=== PATIENT | female | born 1945 | race Caucasian/White ===

== ENCOUNTER → 2016-03-09 | Outpatient (CLI) | payer OTHER ==
--- NOTE | 2016-03-09 13:27 | CPEEG ---
[f rep st] ELECTROENCEPHALOGRAM DATE OF STUDY: 03/09/2016 INTERPRETATION: Normal EEG during wakefulness and drowsiness. There were no potentially epileptogenic abnormalities present recording. REPORT: This EEG contains 10 Hz alpha to the posterior head regions. There was no abnormal activation at rest, during photic stimulation or hyperventilation. The patient became drowsy during the study. During drowsiness, there were slow bi-temporal transients. This is a normal finding for state of consciousness and age. There was no abnormal activation during drowsiness or during times of arousal. /[id number]/MODL MTDD
== END ==
LOC: FCPNEURO 09:11
PROVIDERS: ATTEND Psychiatry & Neurology Neurology
DX: R41.89 Other symptoms and signs involving cognitive functions and awareness (principal); R51 Headache

== ENCOUNTER → 2016-03-20 | Outpatient (CLI) | payer OTHER, MEDICAID ==
[~2016-03-20] MED LIST: GADOBUTROL 10 ML VIAL IVP ONE
[2016-03-20 10:47] LABS: CREATININE 0.7 mg/dL (0.6-1.0); GLOMERULAR FILTRATION RATE > 60
--- NOTE | 2016-03-20 17:23 | MR ---
MRI of the Brain (Without and With Contrast) Clinical Indication: Persistent headache and altered mental status in a 70-year-old female; evaluate for structural lesion.. Technique: T1-weighted images were acquired axially and sagittally from the foramen magnum to the ve rtex. Axial T1-weighted, susceptibility-weighted, fast inversion-recovery, fast T2-weighted, and dif fusion-weighted axial images were obtained without contrast. Following uneventful intravenous adminis tration of 6 mL Gadavist contrast, axial and coronal T1-weighted images were performed. Findings: No masses, areas of hemorrhage or extraaxial fluid collections are identified. Ventricles and midline structures are normal in position and appearance. There are a few scattered areas of whit e matter T2 hyperintensity bilaterally supratentorially. These may reflect minimal small vessel ische adalgisa disease. Diffusion-weighted images are negative for acute ischemia. Cerebellar tonsils are in no rmal position. Vascular structures are normal with normal flow-voids seen in the superior sagittal si nus, basilar artery, and bilateral internal carotid arteries. Postcontrast images demonstrate no enha ncing lesions or abnormal leptomeningeal enhancement. Paranasal sinuses and mastoid air cells are renetta ar. Impression: The examination is essentially normal for age with minimal white matter T2 hyperintensit y, which may reflect small vessel disease. No structural lesion is identified.
== END ==
LOC: FIMAGING 09:56
PROVIDERS: ATTEND Psychiatry & Neurology Neurology
DX: R41.89 Other symptoms and signs involving cognitive functions and awareness (principal); R51 Headache; R25.1 Tremor, unspecified
CPT/HCPCS: 70553; A9585

== ENCOUNTER → 2016-04-20 | Outpatient (CLI) | payer OTHER, MEDICAID | LOC: FIMAGING 12:55 | DX: Z12.31 Encounter for screening mammogram for malignant neoplasm of breast (principal); Z80.3 Family history of malignant neoplasm of breast | CPT/HCPCS: G0202 ==

== ENCOUNTER 2016-09-13 10:09 | Observation (INO) | payer OTHER, MEDICAID ==
--- NOTE | 2016-09-13 10:12 | EDPHY ---
H & P Time Seen by Provider: 09/13/16 10:12 HPI/ROS: CHIEF COMPLAINT: Arms tingling HISTORY OF PRESENT ILLNESS: Patient is been evaluated by Dr. Hernandez at [facility], and Dr. Clark including a negative brain MRI except for some T2 hyperintensity on 03/20/2016 and a negative EEG on 03/09/2016. She has had these episodes twice a month for the last 3 years. This morning she was doing normal chores around the house, when she had sudden onset of right hand shaking like her previous, bilateral upper arm numbness. This then resolved after she was able to walk up stairs and called 911 but she developed right-sided facial numbness and right leg weakness. She says this is now almost gone but still a little bit persistent. No difficulty with speech or balance. No visual symptoms. No seizure. No recent injury or trauma. REVIEW OF SYSTEMS: Eye: no change in vision ENT: no sore throat Cardiac: no chest pain or syncope Pulmonary: no cough or SOB Abdomen: no vomiting, diarrhea, abdominal pain Musculoskeletal: no back pain or neck pain, no recent chiropractic. Skin: no rash Neuro: Mild headache now. Constitutional: no fever : no urinary symptoms A comprehensive 10 point review of systems is otherwise negative aside from elements mentioned in the history of present illness. PAST MEDICAL HISTORY: Vertigo and hypertension. Degenerative disc disease. Social history: Patient lives with an 85-year-old roommate and her cat Radha carpio. General Appearance: Alert and conversant, cooperative. Eyes: No scleral icterus. Extraocular motion intact. ENT, Mouth: Normal mucous membranes. No tongue laceration or abrasion. Respiratory: Normal respiratory effort, breath sounds equal, lungs are clear to auscultation. Cardiovascular: Regular rate and rhythm. Gastrointestinal: Abdomen is soft and non tender. Neurological: Alert and oriented x3. Ambulatory to the bathroom without assistance or ataxia. Skin: Warm and dry, no rashes. Musculoskeletal: No peripheral edema and no joint swelling. Psychiatric: Not agitated. Moderately anxious. The patient is alert. States age is 71 and month is September. Will follow commands to open and close eyes and advertising director hand. There is not a gaze paresis. Visual pretty are intact. Face is symmetric. Right arm shows no drift. Right leg shows no drift. Left arm shows no drift. Left leg shows no drift. Limb ataxia is absent. Sensation is intact. There is no aphasia and no dysarthria. There is no evidence of neglect. Emergency Department course/MDM: 1030: Discussed with Dr. Hernandez the patient's neurologist; she requests that because of the patient's right-sided facial numbness and facial weakness that she be admit for TIA workup. Patient does not have objective neurologic deficit on my evaluation, and so although symptoms present for less than 3 hours does not in my clinical impression meet criteria for stroke alert. Constitutional: Initial Vital Signs Temperature (C) 36.8 C 09/13/16 10:21 Heart Rate 94 09/13/16 10:21 Respiratory Rate 16 09/13/16 10:21 Blood Pressure 166/110 H 09/13/16 10:21 O2 Sat (%) 97 09/13/16 10:21 O2 Delivery Mode Room Air Allergies/Adverse Reactions: bacitracin [From Neosporin] Allergy (Verified 07/20/11 20:05) bacitracin zinc [From Neosporin] Allergy (Verified 07/20/11 20:05) benzalkonium chloride [From Neosporin] Allergy (Verified 07/20/11 20:05) gramicidin D [From Neosporin] Allergy (Verified 07/20/11 20:05) hydrocortisone [From Neosporin] Allergy (Verified 07/20/11 20:05) neomycin sulfate [From Neosporin] Allergy (Verified 07/20/11 20:05) polymyxin B [From Neosporin] Allergy (Verified 07/20/11 20:05) polymyxin B sulfate [From Neosporin] Allergy (Verified 07/20/11 20:05) Home Medications: Medication Instructions Recorded Beclomethasone Qvar 80 [Qvar 80 2 puffs IH DAILY PRN 09/13/16 (*)] Herbals/Supplements -Info Only 1 ea PO DAILY 09/13/16 Losartan Potassium [Cozaar 25 mg 12.5 mg PO HS 09/13/16 (*)] Multivitamins [Multivitamin (*)] 1 each PO DAILY 09/13/16 Triamcinolone Acetonide [Nasacort] 1 spray NASAL PRN PRN 09/13/16 Medical Decision Making - Diagnostics EKG Interpretation: 12-lead EKG interpreted by me; official reading is in trace master. My interpretation is sinus rhythm rate 79 normal intervals. Imaging Results: Imaging Impressions Head CT 09/13/16 10:29 Impression: Nothing acute identified. Final concordant results called to Dr. Schultz at 10:53 AM General information for patients regarding this examination can be found at [email or web address]. If you have questions or comments about this report, please contact me at (hospital) or [phone] (cell). Noncontrast head CT negative discussed and reviewed with Elda at 10:52 a.m. Imaging: I viewed and interpreted images myself Differential Diagnosis: Differential considered including but not limited to ischemic stroke, intracranial mass or bleed, transverse myelitis or other spinal cord problem, metabolic, seizure, panic or anxiety. - Data Points Laboratory Results: Laboratory Results 09/13/16 10:00 09/13/16 10:00 09/13/16 09/13/16 09/13/16 10:00 10:00 10:00 WBC 6.25 10^3/uL 10^3/uL (3.80-9.50) RBC 4.66 10^6/uL 10^6/uL (4.18-5.33) Hgb 14.6 g/dL g/dL (12.6-16.3) Hct 44.1 % % (38.0-47.0) MCV 94.6 fL fL (81.5-99.8) MCH 31.3 pg pg (27.9-34.1) MCHC 33.1 g/dL g/dL (32.4-36.7) RDW 13.1 % % (11.5-15.2) Plt Count 255 10^3/uL 10^3/uL (150-400) MPV 9.8 fL fL (8.7-11.7) Neut % (Auto) 54.1 % % (39.3-74.2) Lymph % (Auto) 33.0 % % (15.0-45.0) [place] % (Auto) 7.5 % % (4.5-13.0) Eos % (Auto) 3.8 % % (0.6-7.6) Baso % (Auto) 1.3 % % (0.3-1.7) Nucleat RBC Rel Count 0.0 % % (0.0-0.2) Absolute Neuts (auto) 3.38 10^3/uL 10^3/uL (1.70-6.50) Absolute Lymphs (auto) 2.06 10^3/uL 10^3/uL (1.00-3.00) Absolute Monos (auto) 0.47 10^3/uL 10^3/uL (0.30-0.80) Absolute Eos (auto) 0.24 10^3/uL 10^3/uL (0.03-0.40) Absolute Basos (auto) 0.08 10^3/uL 10^3/uL (0.02-0.10) Absolute Nucleated RBC 0.00 10^3/uL 10^3/uL (0-0.01) Immature Gran % 0.3 % % (0.0-1.1) Immature Gran # 0.02 10^3/uL 10^3/uL (0.00-0.10) Sodium 141 mEq/L mEq/L (134-144) Potassium 4.1 mEq/L mEq/L (3.5-5.2) Chloride 106 mEq/L mEq/L (97-110) Carbon Dioxide 22 mEq/l mEq/l (22-31) Anion Gap 13 mEq/L mEq/L (8-16) BUN 21 mg/dL mg/dL (7-23) Creatinine 0.8 mg/dL mg/dL (0.6-1.0) Estimated GFR > 60 Glucose 124 mg/dL H mg/dL (70-100) Calcium 10.0 mg/dL mg/dL (8.5-10.4) Troponin I < 0.012 ng/mL ng/mL (0-0.034) TSH 2.490 uIU/mL uIU/mL (0.465-4.680) Departure - Departure Disposition: [facility] Inpatient Acute Clinical Impression: Facial paresthesia Condition: Good
[2016-09-13 10:42] LABS: % IMMATURE GRANULYOCYTES 0.3 % (0.0-1.1); ABSOLUTE IMMATURE GRANULOCYTES 0.02 10^3/uL (0.00-0.10); ADD DIFF? NO; ADD MORPH? NO; ADD SCAN? NO; ATYPICAL LYMPHOCYTE FLAG 20 (0-99); FRAGMENT RBC FLAG 0 (0-99); HEMATOCRIT 44.1 % (38.0-47.0); HEMOGLOBIN 14.6 g/dL (12.6-16.3); LEFT SHIFT FLG 0 (0-99); LIPEMIA HEMOLYSIS FLAG 80 (0-99); MEAN CELL HEMOGLOBIN 31.3 pg (27.9-34.1); MEAN CELL HEMOGLOBIN CONCENTR. 33.1 g/dL (32.4-36.7); MEAN CELL VOLUME 94.6 fL (81.5-99.8); MEAN PLATELET VOLUME 9.8 fL (8.7-11.7); PLATELET CLUMPS FLAG 10 (0-99); PLATELET COUNT 255 10^3/uL (150-400); RED BLOOD CELL COUNT 4.66 10^6/uL (4.18-5.33); RED CELL DISTRIBUTION WIDTH 13.1 % (11.5-15.2)
[2016-09-13 10:47] LABS: ANION GAP 13 mEq/L (8-16); CARBON DIOXIDE 22 mEq/l (22-31); CHLORIDE 106 mEq/L (97-110); CREATININE 0.8 mg/dL (0.6-1.0); GLOMERULAR FILTRATION RATE > 60; GLUCOSE 124 mg/dL (70-100); POTASSIUM 4.1 mEq/L (3.5-5.2); SODIUM 141 mEq/L (134-144)
[2016-09-13 10:58] LABS: TROPONIN I < 0.012 ng/mL (0-0.034)
--- NOTE | 2016-09-13 10:58 | CPEKG ---
Heart Rate: 79 RR Interval: 759 P-R Interval: 200 QRSD Interval: 82 QT Interval: 356 QTC Interval: 409 P [place]: 63 QRS [place]: 0 T Wave [place]: 27 EKG Severity - NORMAL ECG - EKG Impression: SINUS RHYTHM Electronically Signed By: Misael Schultz 13-Sep-2016 10:59:56
[2016-09-13] MEDS ORDERED: ONDANSETRON 4 MG/2 ML VIAL IVP PRN (12:40)
[2016-09-13] MEDS ORDERED: PROMETHAZINE HCL 25 MG/ML INJ IVP PRN (12:40)
[2016-09-13] MEDS ORDERED: oxyCODONE IR 5 MG TAB PO PRN (12:40)
[2016-09-13] MEDS ORDERED: ACETAMINOPHEN 325 MG TAB PO PRN (12:40)
[2016-09-13] MEDS ORDERED: ONDANSETRON DISINTEGRATING 4 MG TAB PO PRN (12:40)
[2016-09-13] MEDS ORDERED: Triamcinolone Acetonide [Nasacort] 1 SPRAY NASAL PRN (12:43)
[2016-09-13] MEDS ORDERED: BECLOMETHASONE QVAR 80 MDI IH PRN (12:43)
[2016-09-13] MEDS ORDERED: NS 1,000 ML IV SCH (12:45)
--- NOTE | 2016-09-13 14:38 | PDGENHP ---
History and Physical - Chief Complaint paresthesias/tremors - History of Present Illness 71 yo F with PMH of HTN and weekly "episodes" of "fuzziness" of thinking associated with right arm and hand paresthesias and tremors as well as neck tightness and leg spasms. She notes that these episodes occur typically at least once per week for the last year and a half, and each episode lasts around 10-12 minutes. When they occur she is unable to do much of anything other than sit and wait for it to pass. Lying down makes it worse and when she tries to work or do normal activities she is unable to. This was occurring again today but was different in that her right fifth finger was spontaneously abducting and both her arms were involved with paresthesias and shaking. This led her to call 911. On arrival in the ER she also noted some tingling on her right face. All these issues resolved spontaneously and she is currently feeling well. She has been evaluated for these issues in the past and underwent EEG, brain MRI, holter monitoring and stress testing in the past. All these tests were normal, including Holter monitoring that did catch an episode. History Information - Allergies/Home Medication List Allergies/Adverse Reactions: bacitracin [From Neosporin] Allergy (Verified 07/20/11 20:05) bacitracin zinc [From Neosporin] Allergy (Verified 07/20/11 20:05) benzalkonium chloride [From Neosporin] Allergy (Verified 07/20/11 20:05) gramicidin D [From Neosporin] Allergy (Verified 07/20/11 20:05) hydrocortisone [From Neosporin] Allergy (Verified 07/20/11 20:05) neomycin sulfate [From Neosporin] Allergy (Verified 07/20/11 20:05) polymyxin B [From Neosporin] Allergy (Verified 07/20/11 20:05) polymyxin B sulfate [From Neosporin] Allergy (Verified 07/20/11 20:05) Home Medications: Beclomethasone Qvar 80 [Qvar 80 (*)] 2 puffs IH DAILY PRN 09/13/16 [Last Taken Unknown] Herbals/Supplements -Info Only 1 ea PO DAILY 09/13/16 [Last Taken 09/12/16] Losartan Potassium [Cozaar 25 mg (*)] 12.5 mg PO HS 09/13/16 [Last Taken ] Multivitamins [Multivitamin (*)] 1 each PO DAILY 09/13/16 [Last Taken 09/12/16] Triamcinolone Acetonide [Nasacort] 1 spray NASAL PRN PRN 09/13/16 [Last Taken ] I have personally reviewed and updated: family history, medical history, social history, surgical history - Past Medical History arthritis, hypertension - Surgical History Reports: no pertinent surgical hx - Family History Positive for: diabetes type II (mother and cousin) Additional family history: sister with osteoporosis - Social History Smoking Status: Never smoked Alcohol Use: None Drug Use: None Additional social history: Has an 85 year old roommate that she assists with various things. Has a cat. Teaches figure skating. Review of Systems ROS: 10pt was reviewed & negative except for what was stated in HPI & below Physical Exam Temp Pulse Resp BP Pulse Ox 36.6 C 87 20 154/95 H 97 09/13/16 12:32 09/13/16 12:32 09/13/16 12:32 09/13/16 12:32 09/13/16 12:32 Constitutional: no apparent distress, appears nourished Eyes: PERRL, anicteric sclera Ears, Nose, Mouth, Throat: moist mucous membranes, hearing normal Cardiovascular: regular rate and rhythym, no murmur, rub, or gallop, No edema Respiratory: no respiratory distress, no rales or rhonchi, clear to auscultation Gastrointestinal: normoactive bowel sounds, soft, non-tender abdomen Genitourinary: no bladder tenderness Skin: warm, normal color Musculoskeletal: full muscle strength, no muscle tenderness, No asymmetric calves Neurologic: AAOx3 Psychiatric: interacting appropriately, not anxious, not encephalopathic Lab Data & Imaging Review 09/13/16 10:00 09/13/16 10:00 WBC 6.25 10^3/uL (3.80-9.50) 09/13/16 10:00 RBC 4.66 10^6/uL (4.18-5.33) 09/13/16 10:00 Hgb 14.6 g/dL (12.6-16.3) 09/13/16 10:00 Hct 44.1 % (38.0-47.0) 09/13/16 10:00 MCV 94.6 fL (81.5-99.8) 09/13/16 10:00 MCH 31.3 pg (27.9-34.1) 09/13/16 10:00 MCHC 33.1 g/dL (32.4-36.7) 09/13/16 10:00 RDW 13.1 % (11.5-15.2) 09/13/16 10:00 Plt Count 255 10^3/uL (150-400) 09/13/16 10:00 MPV 9.8 fL (8.7-11.7) 09/13/16 10:00 Neut % (Auto) 54.1 % (39.3-74.2) 09/13/16 10:00 Lymph % (Auto) 33.0 % (15.0-45.0) 09/13/16 10:00 [place] % (Auto) 7.5 % (4.5-13.0) 09/13/16 10:00 Eos % (Auto) 3.8 % (0.6-7.6) 09/13/16 10:00 Baso % (Auto) 1.3 % (0.3-1.7) 09/13/16 10:00 Nucleat RBC Rel Count 0.0 % (0.0-0.2) 09/13/16 10:00 Absolute Neuts (auto) 3.38 10^3/uL (1.70-6.50) 09/13/16 10:00 Absolute Lymphs (auto) 2.06 10^3/uL (1.00-3.00) 09/13/16 10:00 Absolute Monos (auto) 0.47 10^3/uL (0.30-0.80) 09/13/16 10:00 Absolute Eos (auto) 0.24 10^3/uL (0.03-0.40) 09/13/16 10:00 Absolute Basos (auto) 0.08 10^3/uL (0.02-0.10) 09/13/16 10:00 Absolute Nucleated RBC 0.00 10^3/uL (0-0.01) 09/13/16 10:00 Immature Gran % 0.3 % (0.0-1.1) 09/13/16 10:00 Immature Gran # 0.02 10^3/uL (0.00-0.10) 09/13/16 10:00 Sodium 141 mEq/L (134-144) 09/13/16 10:00 Potassium 4.1 mEq/L (3.5-5.2) 09/13/16 10:00 Chloride 106 mEq/L (97-110) 09/13/16 10:00 Carbon Dioxide 22 mEq/l (22-31) 09/13/16 10:00 Anion Gap 13 mEq/L (8-16) 09/13/16 10:00 BUN 21 mg/dL (7-23) 09/13/16 10:00 Creatinine 0.8 mg/dL (0.6-1.0) 09/13/16 10:00 Estimated GFR > 60 09/13/16 10:00 Glucose 124 mg/dL (70-100) H 09/13/16 10:00 Calcium 10.0 mg/dL (8.5-10.4) 09/13/16 10:00 Troponin I < 0.012 ng/mL (0-0.034) 09/13/16 10:00 Visualized and Interpreted imaging results: Yes Interpretation: Head CT: no acute findings Visualized and Interpreted EKG results: Yes EKG Interpretation: Positive for: normal sinsus rhythm Assessment & Plan Assessment: Facial paresthesia (Acute) 71 yo F with PMH of HTN presenting with brief episode of bilateral upper extremity paresthesias/tremors in the setting of nearly 2 years of intermittent similar issues. # paresthesias/tremors: having near weekly episodes of same with prior w/u thus far unremarkable. At this point etiology unclear but query atypical migraine versus less likely TIA versus cervical radiculopathy versus less likely partial seizure. Has had recent EEG not c/w seizure as well as recent brain MRI and head CT both of which were negative for any anatomic abnormality to explain her sxs. Will check echo and carotid US for complete TIA eval, continue to monitor on tele. Will also obtain CT cervical spine given that this could represent cervical radiculopathy. Neuro consult in am. # anxiety: patient does appear fairly anxious and expresses issues around feeling overwhelmed with how much she needs to get done in a given day so certainly some underlying anxiety could be contributing and query above being related to panic attack/hyperventilation however the typical unilateral nature of her sxs would argue against that. Will recommend op f/u. Check TSH # HTN: continue losartan # dispo: observation status, will likely need < 48 hours stay for eval/mgmt of above Patient new to my care. Old records reviewed and summarized as above. Care plan reviewed with ER doctor including plans for neuro consult.
[2016-09-13 14:40] LABS: COLOR YELLOW; LEUKOCYTE ESTERASE,URINE NEGATIVE (NEGATIVE); NITRITE,URINE NEGATIVE (NEGATIVE)
[2016-09-13 20:01] VITALS: BP 149/86; PULSE 93; RESP 18; TEMP 98.4; O2SAT 96
[2016-09-13] MEDS ORDERED: LOSARTAN POTASSIUM 25 MG TAB PO SCH (21:00)
--- NOTE | 2016-09-13 21:42 | GCON ---
[f rep st] CONSULTATION DATE OF CONSULTATION: 09/13/2016 REFERRING PHYSICIAN: Salomón Gama MD HISTORY OF PRESENT ILLNESS: The patient is a 71-year-old woman who I am asked to see in neurologic consultation regarding recurrent spells. She has a chief complaint of episodes of leg weakness but multiple other symptoms as well. Symptoms began approximately a year and a half ago and have been r ather stereotyped since then. Classically she says that she will start having an abnormal sensation in her low back or neck and then perceive that her legs are not working very well and feels weak in her legs and she usually needs to sit down and wait for it to gradually get better. Very often the re is a tremulousness in the right hand. Sometimes she has associated paresthesias and she tries to take deep breaths during the episodes and have it eventually pass after 10-15 minutes. The episode s are occurring approximately every 2 weeks and she has not found clear-cut precipitating or exacerb ating factors for this. She estimates maybe 5 episodes have occurred during the night when she is l jaymie in bed in either drowsy or asleep even. The duration has never been any longer than this typic ally. Today she had a very similar episode, and the only reason she came to the hospital was renzo e she said she was having tingling in both of the upper extremities. Sometimes she feels as if she is having some muscle spasms. She also said there was a transient, light perception of tingling in the right face. She had elevated blood pressure with the Emergency Room pressure around 180 systoli c. When she came to the floor her pressure was 166/110 and she has had pressure around 180/108 and now it is 156/88. She does have known hypertension. She does not typically have severe headache, b ut often does describe some headache in the posterior head region on a variable basis, but does not have a known history of migraine. She had evaluation with Cardiology, Dr. Meneses, and had extensiv e evaluation including Holter monitor, and had 1 of her events during the recording and nothing was seen to suggest a cardiac source. She had Rheumatology evaluation with Dr. Syed and apparently was told that she had some severe degenerative cervical spine disease but nothing else more specific, an d that was thought to perhaps explain headache. When she saw Dr. Hernandez for Neurology, I do not have her notes available, she initiated a workup with EEG that was unremarkable and recommended a 48 hour EEG, but the patient did want to do that. She apparently has seen Dr. Hernandez on 2 occasions. On this hospitalization, she had a negative head CT and she has had carotid ultrasound showing no si gnificant abnormalities. She has had a CT scan of the cervical spine showing degenerative spine dis ease, but nothing else more specific. REVIEW OF SYSTEMS: Otherwise 10 point review of systems has been completed and unremarkable except for that noted above. She does sometimes have some palpitations during these events. In fact, she often feels a strong pounding heartbeat during the events, but denies feeling sweaty. She is anxiou s during the events. PAST MEDICAL HISTORY: As outlined above. Also notable for ulcer disease and diagnosed with Vilma cam i in the past which treated her successfully. She has had hypertension for which she is on treatmen t. Some osteoarthritis. SOCIAL HISTORY: No smoking, alcohol or drug use. She is fairly physically active, and teaches ice skating. FAMILY HISTORY: Diabetes. She lives with an older woman and helps take care of her and that keeps her very busy. HOME MEDICATIONS: Nasacort, QVAR, Cozaar. She is not regularly on aspirin. ALLERGIES: Bacitracin, zinc chloride, hydrocortisone, polymyxin, neomycin. PHYSICAL EXAMINATION: VITAL SIGNS: Blood pressure 156/88, temperature 36.7, pulse of 83, respirati ons 17. GENERAL: She is a well-developed woman lying in the bed in no acute distress. EYES: Pamela r. NECK: Supple with no bruits or masses. No supraclavicular bruits. CARDIAC: Regular rate and rhythm. No murmur. EXTREMITIES: No cyanosis or edema. No skin rash. NEUROLOGIC: She is awake, alert and attentive, with clear fluent speech. She is oriented to person, place, time, and general situation. She has good recent and remote memory, and normal concentration, attention and general f und of knowledge. Pupils 3 mm and reactive. Extraocular movements are intact. Normal facial sensa tion and strength. Motor exam: Normal muscle bulk and tone. 5/5 strength with no abnormal movement s. Sensation is intact for temperature and light touch. No ataxia in the upper extremities. Refle xes are 2+ and symmetric. DIAGNOSTIC STUDIES: As outlined above. IMPRESSION: Ms. Caldwell has a stereotyped smell characterized by paresthesias, pain, dysfunction in the legs, some tremulousness, and today a little bit of paresthesias in bilateral upper extremities and some muscle spasms as well as some very mild right facial numbness today. The episodes have occ urred probably 30 times or so over the last year and a half and have never really changed. She has had rather thorough evaluations and no cardiac source has been found and no definite neurologic sour ce. The differential diagnosis does include panic attacks as well as transient ischemic attack or c ardiac arrhythmias, but I do not think it is a primary cardiac issue. I do not think she is probabl y having a transient ischemic attack. She does not have vascular stenoses that we have been able to identify. EEG was negative. Seizure seems unlikely based on this description. It is hard to be c ertain that this is in fact a panic attack, but the way she is describing some of the symptoms makes me think she is probably having some hyperventilation triggering the paresthesias and some of the s pasms, and this bilateral lower extremity dysfunction does not seem likely due to brainstem ischemia , which is about the only way I could explain this if we were really dealing with clots or thrombosi s. In any case, I think that she could safely be followed up as an outpatient. She has completed h er workup here. She asked if she can go home. I think that would be safe. She has an NIH stroke s claude of 0. I did recommend she add a baby aspirin daily to her regimen just to be cautious but noth ing else more specific at this point. I would not add a statin because I think the diagnosis of TIA is unlikely. The even more obscure considerations of pheochromocytoma or carcinoid syndrome could be worked up by her upkeep worker if the episodes become more associated with prominent hypertension or flushing, but that seems low likelihood as well. I told her she might try a trial of an anti anxiet y medication but she was very reluctant to do that. The total unit time was 75 minutes, greater than 50% of the time counseling and coordination of care . /[id number]/MODL
[2016-09-14] MEDS ORDERED: ENOXAPARIN 40 MG/0.4 ML SYR SC SCH (09:00)
[2016-09-14] MEDS ORDERED: MULTIVITAMINS 1 EACH TAB PO SCH (09:00)
--- NOTE | 2016-09-14 10:14 | PDDCSUM ---
Discharge Summary Discharge Summary: Dates of service 09/13/16 Discharge diagnosis: # paresthesias # anxiety # thyroid enlargement/nodules Consultations: neurology Procedures performed: head CT, c spine CT, carotid US Hospital course by problem: # paresthesias: patient with stereotypical spells occurring q weekly x 1.5 years with extensive w/u negative to date. Neurology consulted, appreciate their recommendations. At this point seems unlikely TIA, unlikely seizure with negative EEG and unusual presentation, does not appear to be cardiac in nature and has had Holter monitor in place during episodes that was negative. ? anxiety /panic attack and hyperventilation--patient to follow up for further evaluation of this, not interested in starting empiric anxiety medication now. # anxiety: as above, patient having these episodes and clearly anxious on presentation, recommending op f/u # thyroid enlargement/nodules: consistent with multinodular goiter, TSH WNL, recommend further imaging w/u per PCP--called to discuss this with patient. She has been told that she has these in the past and states that a thyroid doctor removed multiple nodules before, she will f/u with PCP for further eval # HTN: continued on losartan, did have elevation of BP on arrival and patient notes that she has recently cut down on her HTN dose--will f/u with pcp to determine if should be increased again. Consider pheo should elevated bp always be present with these events but again seems less likley DC home f/u with PCP in next 1-2 weeks Patient was seen earlier in the day of discharge, but discharged home under recommendation of neurology later in the day and I did not discuss discharge plans or follow up with her. I was able to call her on the phone today and discuss her follow up plans as well as the abnormality noted on CT scan with patient.
== END 2016-09-13 21:30 | disposition home or self-care (01) ==
LOC: EDUNIT# → F3N 12:26
PROVIDERS: ADMIT Internal Medicine; ATTEND Internal Medicine
DX: R20.2 Paresthesia of skin (principal); F41.9 Anxiety disorder, unspecified; E04.2 Nontoxic multinodular goiter; I10 Essential (primary) hypertension; M19.90 Unspecified osteoarthritis, unspecified site
CPT/HCPCS: 70450; 72125; 93005; 93880; 99285; G0378

== ENCOUNTER → 2016-10-24 | Outpatient (CLI) | payer OTHER, MEDICAID | LOC: BMCIMAGING 14:39 | PROVIDERS: ATTEND Internal Medicine Endocrinology, Diabetes & Metabolism | DX: E04.2 Nontoxic multinodular goiter (principal) | CPT/HCPCS: 76536-PO ==

== ENCOUNTER → 2016-11-23 | Outpatient (CLI) | payer OTHER, MEDICAID | LOC: FIMAGING 08:57 | PROVIDERS: ATTEND Family Medicine | DX: Z13.820 Encounter for screening for osteoporosis (principal); M81.0 Age-related osteoporosis without current pathological fracture; E04.2 Nontoxic multinodular goiter ==

== ENCOUNTER → 2017-08-03 | Outpatient (CLI) | payer OTHER, MEDICAID | LOC: FIMAGING 10:25 | PROVIDERS: ATTEND Family Medicine | DX: Z12.31 Encounter for screening mammogram for malignant neoplasm of breast (principal); Z80.3 Family history of malignant neoplasm of breast ==

== ENCOUNTER → 2018-02-25 | Outpatient (CLI) | payer OTHER, MEDICAID | LOC: BMCIMAGING 12:59 | PROVIDERS: ATTEND Internal Medicine Endocrinology, Diabetes & Metabolism | DX: E04.2 Nontoxic multinodular goiter (principal) | CPT/HCPCS: 76536-PO ==

== ENCOUNTER → 2018-07-12 | Outpatient (CLI) | payer OTHER, MEDICAID | LOC: FIMAGING 11:33 ==